=== PATIENT | female | born 1945 | race Caucasian/White ===

== ENCOUNTER 2019-10-31 14:23 | Outpatient (CLI) | payer MEDICARE, SELFPAY ==
--- NOTE | ~2019-10-31 | MM_ITS ---
EXAMINATION: MM screening [facility] w [facility] HISTORY: Screening mammogram TECHNIQUE: Craniocaudal and mediolateral oblique 3-D tomosynthesis images were obtained and synthetic 2-D images were generated. CAD analysis was submitted and interpreted. COMPARISON: No prior mammogram is available for comparison at this institution. BREAST PARENCHYMAL COMPOSITION: The breasts are heterogeneously dense, which may obscure small masses . FINDINGS: RIGHT BREAST: There is no evidence of suspicious mass, calcification, or architectural distortion to suggest malignancy. There has been no significant interval change. LEFT BREAST: A mass is present in the middle third of the lower breast best appreciated 5 cm from the nipple on the craniocaudal view in line with the nipple axis. IMPRESSION: 1. Left breast mass. 2. Additional mammographic views and possible breast ultrasound are recommended. BI-RADS Category 0: Incomplete: Needs additional imaging evaluation. Reviewed, dictated and finalized at location A. GER [employer]GY [employer] ACCOUNT IMPRESSION: 1. Left breast mass. 2. Additional mammographic views and possible breast ultrasound are recommended . BI-RADS Category 0: Incomplete: Needs additional imaging evaluation.
== END 2019-10-31 14:24 | disposition home or self-care (01) ==
LOC: ANHIMG 14:25
PROVIDERS: PCP Internal Medicine; Visit Provider Obstetrics & Gynecology Gynecology
DX: Z12.31 Encounter for screening mammogram for malignant neoplasm of breast (principal); R92.8 Other abnormal and inconclusive findings on diagnostic imaging of breast
CPT/HCPCS: 77063; 77067

== ENCOUNTER 2019-11-22 13:15 | Outpatient (CLI) | payer MEDICARE, SELFPAY ==
--- NOTE | ~2019-11-22 | MMUS_ITS ---
EXAMINATION: MM diagnostic mammo unilat LT, US breast LT complete HISTORY: Follow-up left breast mass TECHNIQUE: Additional 3-D tomosynthesis images of the left breast were performed and synthetic 2-D im ages were generated. CAD analysis was submitted and interpreted. High resolution left breast ultrasou nd was performed. COMPARISON: Comparison to multiple prior studies sequentially, with oldest reviewed study dated 10/14. FINDINGS: MAMMOGRAPHIC FINDINGS: The breasts are heterogenously dense, which may obscure small masses. There is a low-density mass in the lower central aspect of the left breast. There are benign breast calcifications. ULTRASOUND: At 3:00, 1 cm from the nipple, there is a 1.2 cm cyst. There are additional smaller cyst measuring 7 mm or smaller at the 4:00 position, 1 cm from the nipple. Mildly prominent subareolar ducts. No suspi cious masses to suggest malignancy. IMPRESSION: 1. No evidence for malignancy in the left breast. Multiple benign cysts correspond to the mammographi c finding. 2. Routine yearly screening mammogram and regular clinical breast examination are recommended. BI-RADS Category 2: Benign finding(s). Reviewed, dictated and finalized at location A. MANAGEMENT COORDINATOR IMPRESSION: 1. No evidence for malignancy in the left breast. Multiple benign cysts corresp ond to the mammographic finding. 2. Routine yearly screening mammogram and regular clinical breast examination a re recommended. BI-RADS Category 2: Benign finding(s).
== END 2019-11-22 13:16 | disposition home or self-care (01) ==
LOC: ANHIMG 13:17
PROVIDERS: PCP Internal Medicine; Visit Provider Obstetrics & Gynecology Gynecology
DX: R92.8 Other abnormal and inconclusive findings on diagnostic imaging of breast (principal)
CPT/HCPCS: 76641; 77065

== ENCOUNTER 2020-12-03 10:08 | Outpatient (CLI) | payer MEDICARE, SELFPAY ==
--- NOTE | ~2020-12-03 | MM_ITS ---
EXAMINATION: MM screening [facility] w [facility]hu HISTORY: Screening mammogram TECHNIQUE: Craniocaudal and mediolateral oblique 3-D tomosynthesis images were obtained and synthetic 2-D images were generated. CAD analysis was submitted and interpreted. COMPARISON: 11/22/2019 left diagnostic mammogram and complete left breast ultrasound examination 10/31/2019, 10/30/2018, 10/23/2017 bilateral digital screening mammogram examinations BREAST PARENCHYMAL COMPOSITION: The breasts are heterogeneously dense, which may obscure small masses . FINDINGS: There is a biopsy marker in the upper outer left breast; history of benign left breast biop sy 8 years ago. Numerous benign calcifications are scattered in each breast. There is no evidence of suspicious mass, calcification, or architectural distortion to suggest malignancy in either breast. There has been no suspicious interval change. IMPRESSION: 1. No mammographic evidence of malignancy. 2. Recommend routine screening mammography in one year. BI-RADS Category 2: Benign finding(s). Reviewed, dictated and finalized at location A. [employer]
== END 2020-12-03 10:09 | disposition home or self-care (01) ==
LOC: ANHIMG 10:11
PROVIDERS: PCP Internal Medicine; Visit Provider Obstetrics & Gynecology Gynecology
DX: Z12.31 Encounter for screening mammogram for malignant neoplasm of breast (principal)
CPT/HCPCS: 77063; 77067

== ENCOUNTER 2021-12-23 15:40 | Outpatient (CLI) | payer MEDICARE, SELFPAY ==
--- NOTE | ~2021-12-23 | MM_ITS ---
EXAMINATION: MM screening [facility] BI w prabhu HISTORY: Screening mammogram TECHNIQUE: Craniocaudal and mediolateral oblique 3-D tomosynthesis images were obtained and synthetic 2-D images were generated. CAD analysis was submitted and interpreted. COMPARISON: 12/03/2020, 11/22/2019, 10/31/2019 BREAST PARENCHYMAL COMPOSITION: The breasts are heterogeneously dense, which may obscure small masses . FINDINGS: Scattered benign-appearing calcifications are present. There is no suspicious mass, calcifi cation, or architectural distortion to suggest malignancy in either breast. There has been no suspici ous interval change. IMPRESSION: 1. No mammographic evidence of malignancy. 2. Recommend routine screening mammography in one year. BI-RADS Category 2: Benign finding(s). Reviewed, dictated and finalized at location A.
== END 2021-12-23 15:41 | disposition home or self-care (01) ==
PROVIDERS: PCP Internal Medicine; Visit Provider Obstetrics & Gynecology Gynecology
DX: Z12.31 Encounter for screening mammogram for malignant neoplasm of breast (principal)
CPT/HCPCS: 77063; 77067

== ENCOUNTER 2023-01-13 12:28 | Outpatient (CLI) | payer MEDICARE, SELFPAY ==
--- NOTE | ~2023-01-13 | MM_ITS ---
EXAMINATION: MM diagnostic [facility] w prabhu HISTORY: Mastodynia TECHNIQUE: Craniocaudal, mediolateral, and mediolateral oblique 3-D tomosynthesis images of the breas ts were performed and synthetic 2-D images were generated. CAD analysis was submitted and interpreted . COMPARISON: 12/23/2021, 12/03/2020, 11/22/2019, 10/31/2019 BREAST PARENCHYMAL COMPOSITION: The breasts are heterogeneously dense, which may obscure small masses . FINDINGS: No suspicious mass, calcification, or architectural distortion are identified in either ed[place] ast to suggest malignancy. There has been no suspicious interval change. Scattered benign-appearing c alcifications are present. No mammographic correlate is identified for the patient's reported breast pain. IMPRESSION: 1. No specific mammographic correlate is identified for the patient's reported breast pain. Further e valuation at this time should be based on clinical assessment. Continued follow-up physical examinati on is recommended. 2. Recommend routine screening mammography in one year. BI-RADS Category 2: Benign finding(s). Reviewed, dictated and finalized at location A. IMPRESSION: 1. No specific mammographic correlate is identified for the patient's reported breast pain. Further evaluation at this time should be based on clinical assess ment. Continued follow-up physical examination is recommended. 2. Recommend routine screening mammography in one year. BI-RADS Category 2: Benign finding(s).
== END 2023-01-13 12:29 | disposition home or self-care (01) ==
PROVIDERS: PCP Internal Medicine; Visit Provider Nurse Practitioner
DX: N64.4 Mastodynia (principal)
CPT/HCPCS: 77062; 77066; G0279

== ENCOUNTER 2024-02-08 15:25 | Outpatient (CLI) | payer MEDICARE, SELFPAY ==
--- NOTE | ~2024-02-08 | MM_ITS ---
EXAMINATION: MM screening [facility] w prabhu HISTORY: Screening mammogram TECHNIQUE: Craniocaudal and mediolateral oblique 3-D tomosynthesis images were obtained and synthetic 2-D images were generated. CAD analysis was submitted and interpreted. COMPARISON: January 13, 2023 bilateral diagnostic mammogram for mastodynia December 23, 2021 bilateral screening mammogram BREAST PARENCHYMAL COMPOSITION: The breasts are extremely dense, which lowers the sensitivity of mamm ography. FINDINGS: Numerous calcifications are scattered throughout both breasts. There is no evidence of brianne picious mass, calcification, or architectural distortion to suggest malignancy in either breast. Ther e has been no suspicious interval change. IMPRESSION: 1. No mammographic evidence of malignancy. 2. Recommend routine screening mammography in one year. BI-RADS Category 2: Benign finding(s). Reviewed, dictated and finalized at location B.
== END 2024-02-08 15:26 | disposition home or self-care (01) ==
LOC: ANHIMG 15:27
PROVIDERS: PCP Internal Medicine; Visit Provider Internal Medicine
DX: Z12.31 Encounter for screening mammogram for malignant neoplasm of breast (principal)
CPT/HCPCS: 77063; 77067

== ENCOUNTER 2024-05-06 09:41 | Outpatient (CLI) | payer MEDICARE, SELFPAY | END 2024-05-06 09:42 | disposition home or self-care (01) | PROVIDERS: PCP Internal Medicine; Visit Provider Internal Medicine | DX: H90.3 Sensorineural hearing loss, bilateral (principal); H93.11 Tinnitus, right ear; H61.23 Impacted cerumen, bilateral | CPT/HCPCS: 92557; 92567 ==

== ENCOUNTER 2025-02-12 12:34 | Outpatient (CLI) | payer MEDICARE, SELFPAY ==
--- NOTE | ~2025-02-12 | CT_ITS ---
CT Scan of the Chest without Contrast: Clinical Indication: Pulmonary nodule Technique: Contiguous sections were acquired throughout the chest without intravenous contrast. Dose reduction technique was used on this scan by utilizing automated exposure control and iterative recon struction technique. The dose-length product (DLP) was 37.72 mGy-cm. Findings: There is no evidence of any significant mediastinal, hilar or axillary lymphadenopathy. Atherosclerot ic calcifications of the aorta and coronary arteries are present. There is no evidence of pleural or pericardial effusion. The lungs are clear. No pulmonary nodules or infiltrates are noted. Images through the upper abdomen reveal no abnormalities. Impression: No significant abnormalities seen. Reviewed, dictated and finalized at location . Impression: No significant abnormalities seen.
== END 2025-02-12 12:35 | disposition home or self-care (01) ==
LOC: MICIMG 12:36
PROVIDERS: PCP Internal Medicine; Visit Provider Internal Medicine
DX: R91.1 Solitary pulmonary nodule (principal)
CPT/HCPCS: 71250

== ENCOUNTER 2025-04-10 09:43 | Outpatient (CLI) | payer MEDICARE, SELFPAY ==
--- NOTE | ~2025-04-10 | MM_ITS ---
EXAMINATION: MM screening lenora BI w prabhu HISTORY: Screening TECHNIQUE: Craniocaudal and mediolateral oblique 3-D tomosynthesis images were obtained and synthetic 2-D images were generated. CAD analysis was submitted and interpreted. COMPARISON: Comparison to multiple prior studies sequentially, with oldest reviewed study dated 02/2020. BREAST PARENCHYMAL COMPOSITION: Dense: The breasts are extremely dense, which lowers the sensitivity of mammography. FINDINGS: There is no evidence of suspicious mass, calcification, or architectural distortion to sugg est malignancy in either breast. There has been no suspicious interval change. IMPRESSION: 1. No mammographic evidence of malignancy. 2. Recommend routine screening mammography in one year. BI-RADS Category 2: Benign finding(s). Reviewed, dictated and finalized at location B.
--- OUTSIDE RECORDS SUMMARY | 2025-04-10 09:46 | XMS_ITS | Clinical Summary ---
Author Organization [facility] Address [address] [place] [address] Care Team Providers Care Security Systems Installer Name Role Phone Sergio Leonard MD Primary Care Provider [phone] Source Comments [facility],non-owned Affiliates and Associated Physician Practices is amultiple site organization consisting of ambulatory clinics and hospital sitesin [place], [place], [place] and [place]. This disclosure is being madepursuant to the Care Everywhere program and may not contain all information available regarding this patient. Last updated 18.[facility] Allergies No known active allergies Medications * Be aware that medications may not be up to date on this document. Alwaysverify current medications with the patient. Aspirin (ASPIR-81 PO) Active atorvastatin (LIPITOR) 10 MG tablet Take 10 mg by mouth at bedtime Active amLODIPine (NORVASC) 5 MG tablet Take 5 mg by mouth once daily Active METOPROLOL SUCCINATE PO Active Active Problems No known active problems Social History Tobacco Use Types Packs/Day Years Used Date Smoking Tobacco: Every Day Smokeless Tobacco: Never Tobacco Cessation:Ready to Q uit: No; Counseling Given: Yes Comments No Sex and Gender Information Value Date Recorded Sex Assigned at Not on file Legal Sex Female 9:27 AM CDT Gender Identity Not on file Sexual Orientation Not on file Last Filed Vital Signs Vital Sign Reading Time Taken Comments Blood Pressure 122/80 06/05/2018 9:45 AM CDT Pulse 80 06/05/2018 9:45 AM CDT Temperature 36.6 C (97.8 F) 06/05/2018 9:45 AM CDT Respiratory Rate 16 06/05/2018 9:45 AM CDT Oxygen Saturation 94% 06/05/2018 9:45 AM CDT Inhaled Oxygen Concentration - - Weight 78 kg (172 lb) 06/05/2018 9:45 AM CDT Height 160 cm (5' 3) 06/05/2018 9:45 AM CDT Body Mass Index 30.47 06/05/2018 9:45 AM CDT Plan of Treatment Health Maintenance Due Date Last Done Comments BONE DENSITY TESTING 1945 HEPATITIS C SCREENING 10/04/1964 DTAP/TDAP/TD VACCINES (1 - Tdap) 1965 PNEUMOCOCCAL VACCINE 50+ (1 of 1 - PCV) 1996 ZOSTER VACCINE (1 of 2) 1996 Respiratory Syncytial Virus (RSV) Vaccine Pt: or over 60 yrs (1 - 1-dose 75+ series) 2021 COVID-19 VACCINE ( - 2023-2 5 season) 2024 DEPRESSION SCREENING 09/25/2024 INFLUENZA VACCINE (#1) 2025 HEPATITIS B VACCINE Aged Out No longe r eligible based on patient's age to complete this topic HIB VACCINE Aged Out No longer eligi ble based on patient's age to complete this topic HPV VACCINE Aged Out No longer eligi ble based on patient's age to complete this topic MENINGOCOCCAL (Group B) VACC INE SHARED DECISION-MAKING Aged Out No longer eligibl e based on patient's age to complete this topic MENINGOCOCCAL GROUPS A/C/Y/W VACCINE Aged Out No longer eligible b ased on patient's age to complete this topic Insurance Care Teams Security Systems Installer Relationship Specialty Start Date End Date Sergio Leonard MD [address] [place] [address] PCP - General Family Medicine 06/03/16
--- OUTSIDE RECORDS SUMMARY | 2025-04-10 09:47 | XMS_ITS | Data Portability ---
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 Plan of Treatment Reminders Order Date Submit Date Provider Last Modified By Organization Details Last Modified Time Details Appointments Any 15 2024 03:00P M Juliette Ortega MD Not available Not available Not available Lab None recorded. Referral None recorded. Procedures None recorded. Surgeries None recorded. Imaging CT, chest, w/o contrast - Please call patient to schedule. 2024 025 [facility], [address] [address], [place], [address], 02/20/2025 10:45:53 LDCT, chest, for lung cancer screening 2023 024 [facility] ([facility]), [address], [place], [address], 11/07/2023 16:18:46 Medication Orders amoxicill in 500 mg capsule 2024 025 [email or web address] [facility]/Pharmacy #[id number], [address], [place], [address], 02/19/2025 08:30:36 Flonase Allergy Relief 50 mcg/actua tion nasal spray,brianne pension 2024 025 [facility]/Pharmacy #[id number], [address] [place], [address], 02/10/2025 14:23:22 Patient TargetsNo targets recorded. Patient Instructions Encounter Date Encounter Id Patient Instructions Last Modified By Organization Details Last Modified Time 02/10/2025 [id number] Discussed the importance of antibiotic therapy compliance. Patient needs to take medication as prescribed, including completing entire course even if symptoms improve/resolve. Discussed possible side effects of medication. Instructed patient to take medication with food to prevent stomach upset and increase daily water intake. Patient will follow up in 3-4 days if symptoms are not improving or worsen while taking antibiotics. [email or web address] Not available 02/10/2025 14:24:16 Discussed viral infections vs. bacterial infections. Advised to stay hydrated. Take OTC tylenol for pain/fevers. Discussed fevers and basic treatments. Advised to stop smoking. [email or web address] Not available 02/10/2025 14:25:47 Reason for Referral None Reported. Results Created Date Observation Date Name Description Value Unit Range Abnormal Flag Note LastModifiedBy Organization Detail LastModifiedTime 10/26/19 24 10/26/2023 CBC/C OMPLE TE BLD COUNT W/DIF F white blood cells 7.6 x10'3 /uL 4.2-10 .8 Not Available [facility] (Lab) [address] [place], [address], 10/26/2023 20:13:11 10/26/19 24 10/26/2023 CBC/C OMPLE TE BLD COUNT W/DIF F red blood cells 4.63 x10'6 /uL 3.80-5 .20 Not Available [facility] (Lab) [address] [place], [address], 10/26/2023 20:13:11 10/26/19 24 10/26/2023 CBC/C OMPLE TE BLD COUNT W/DIF F hemoglobin 14.5 g/dL 12.0-1 5.6 Not Available [facility] (Lab) [address] [place], [address], 10/26/2023 20:13:11 10/26/19 10/26/2023 CBC/C OMPLE TE BLD COUNT W/DIF F hematocrit 44.9 % 35.7-4 5.7 Not Available [facility] (Lab) [address] [place], [address], 10/26/2023 20:13:11 10/26/19 24 10/26/2023 CBC/C OMPLE TE BLD COUNT W/DIF F mean red cell volume 97.0 fL 82.0-9 9.0 Not Available [facility] (Lab) [address] [place], [address], 10/26/2023 20:13:11 10/26/19 24 10/26/2023 CBC/C OMPLE TE BLD COUNT W/DIF F mean red cell hemoglobin 31.3 pg 27.0-3 3.0 Not Available [facility] (Lab) [address] [place], [address], 10/26/2023 20:13:11 10/26/19 24 10/26/2023 CBC/C OMPLE TE BLD COUNT W/DIF F mean RBC HGB concentratio n 32.3 g/dL 31.0-3 6.0 Not Available [facility] (Lab) [address] [place], [address], 10/26/2023 20:13:11 10/26/19 24 10/26/2023 CBC/C OMPLE TE BLD COUNT W/DIF F red cell distribution width 14.0 % 11.8-1 5.5 Not Available [facility] (Lab) [address] [place], [address], 10/26/2023 20:13:11 10/26/19 24 10/26/2023 CBC/C OMPLE TE BLD COUNT W/DIF F platelets 231 x10'3 /uL 150-40 0 Not Available [facility] (Lab) [address] [place], [address], 10/26/2023 20:13:11 10/26/19 24 10/26/2023 CBC/C OMPLE TE BLD COUNT W/DIF F mean platelet volume 9.8 fL 9.0-12 .4 Not Available [facility] (Lab) [address] [place], [address], 10/26/2023 20:13:11 10/26/19 24 10/26/2023 CBC/C OMPLE TE BLD COUNT W/DIF F neutrophils 49.4 % 39.0-7 2.0 Not Available [facility] (Lab) [address] [place], [address], 10/26/2023 20:13:11 10/26/19 24 10/26/2023 CBC/C OMPLE TE BLD COUNT W/DIF F lymphocytes 37.0 % 16.0-4 7.0 Not Available [facility] (Lab) [address] [place], [address], 10/26/2023 20:13:11 10/26/19 24 10/26/2023 CBC/C OMPLE TE BLD COUNT W/DIF F monocytes 7.9 % 5.0-12 .0 Not Available [facility] (Lab) [address] [place], [address], 10/26/2023 20:13:11 10/26/19 24 10/26/2023 CBC/C OMPLE TE BLD COUNT W/DIF F eosinophils 4.9 % 1.0-7. 0 Not Available [facility] (Lab) [address] [place], [address], 10/26/2023 20:13:11 10/26/19 24 10/26/2023 CBC/C OMPLE TE BLD COUNT W/DIF F basophils 0.5 % 0.0-2. 0 Not Available [facility] (Lab) [address] [place], [address], 10/26/2023 20:13:11 10/26/19 24 10/26/2023 CBC/C OMPLE TE BLD COUNT W/DIF F immature granulocytes 0.3 % 0.00-0 .50 Not Available [facility] (Lab) [address] [place], [address], 10/26/2023 20:13:11 10/26/19 24 10/26/2023 CBC/C OMPLE TE BLD COUNT W/DIF F neutrophils, absolute count 3.75 x10'3 /uL 1.5-8. 0 Not Available [facility] (Lab) [address] [place], [address], 10/26/2023 20:13:11 10/26/19 24 10/26/2023 CBC/C OMPLE TE BLD COUNT W/DIF F lymphocytes, absolute count 2.81 x10'3 /uL 1.07-3 .43 Not Available [facility] (Lab) [address] [place], [address], 10/26/2023 20:13:11 10/26/19 24 10/26/2023 CBC/C OMPLE TE BLD COUNT W/DIF F monocytes, absolute count 0.60 x10'3 /uL 0.29-0 .99 Not Available [facility] (Lab) [address] [place], [address], 10/26/2023 20:13:11 10/26/19 24 10/26/2023 CBC/C OMPLE TE BLD COUNT W/DIF F eosinophils, absolute count 0.37 x10'3 /uL 0.02-0 .53 Not Available [facility] (Lab) [address] [place], [address], 10/26/2023 20:13:11 10/26/19 24 10/26/2023 CBC/C OMPLE TE BLD COUNT W/DIF F basophils, absolute count 0.04 x10'3 /uL 0.01-0 .08 Not Available [facility] (Lab) [address] [place], [address], 10/26/2023 20:13:11 10/26/19 24 10/26/2023 CBC/C OMPLE TE BLD COUNT W/DIF F immature granulocytes ,absolute 0.02 x10'3 /uL 0.00-0 .05 Not Available [facility] (Lab) [address] [place], [address], 10/26/2023 20:13:11 10/26/19 24 10/26/2023 CBC/C OMPLE TE BLD COUNT W/DIF F nucleated red blood cells 0.0 % -0 Not Available [facility] (Lab) [address] [place], [address], 10/26/2023 20:13:11 10/26/19 24 10/26/2023 CBC/C OMPLE TE BLD COUNT W/DIF F NRBC# 0.00 x10'3 /uL Not Available [facility] (Lab) [address] [place], [address], 10/26/2023 20:13:11 10/26/19 24 10/26/2023 COMPR EHENS DEA METAB OLIC PANEL sodium 142 mmol/ L 137-14 5 Not Available [facility] (Lab) [address] [place], [address], 10/26/2023 21:39:44 10/26/19 24 10/26/2023 COMPR EHENS DEA METAB OLIC PANEL potassium 4.0 mmol/ L 3.5-5. 1 Not Available [facility] (Lab) [address] [place], [address], 10/26/2023 21:39:44 10/26/19 24 10/26/2023 COMPR EHENS DEA METAB OLIC PANEL chloride 103 mmol/ L 98-107 Not Available [facility] (Lab) [address] [place], [address], 10/26/2023 21:39:44 10/26/19 24 10/26/2023 COMPR EHENS DEA METAB OLIC PANEL carbon dioxide 30 mmol/ L 22-30 Not Available [facility] (Lab) [address] [place], [address], 10/26/2023 21:39:44 10/26/19 24 10/26/2023 COMPR EHENS DEA METAB OLIC PANEL anion gap 13.0 mmol/ L 14-22 low Not Available [facility] (Lab) [address] [place], [address], 10/26/2023 21:39:44 10/26/19 24 10/26/2023 COMPR EHENS DEA METAB OLIC PANEL glucose 84 mg/dL 70-99 Not Available [facility] (Lab) [address] [place], [address], 10/26/2023 21:39:44 10/26/19 24 10/26/2023 COMPR EHENS DEA METAB OLIC PANEL BUN 28 mg/dL 8-19 high Not Available [facility] (Lab) [address] [place], [address], 10/26/2023 21:39:44 10/26/19 24 10/26/2023 COMPR EHENS DEA METAB OLIC PANEL creatinine 0.73 mg/dL 0.66-1 .25 Not Available [facility] (Lab) [address] [place], [address], 10/26/2023 21:39:44 10/26/19 24 10/26/2023 COMPR EHENS DEA METAB OLIC PANEL GFR >60 Refer ence Range : [place] GFR Healt hy Adult : >60 mL/mi n/1.7 3 m2 Chron ic Kidne y Disea se: 15-60 mL/mi n/1.7 3 m2 Kidne y Failu re: <15/m L/min /1.73 m2 www.n iddk. nih.g ov The MDRD study equat ion has not been valid ated in child zuleyka <18 years of age; pregn ant women ; the elder ly >85 years of age; or in some racia l or ethni c subgr oups, such as Hispa nics. Outsi de the valid ated raymundo eters , estim ated GFR is less accur ate, requi ring clini rosalie judgm ent on a case- by-ca se basis . Clini rosalie inter preta tion for other races and ages must be made by the clini zaan. The MDRD study equat ion has not been valid ated for the evalu ation of serum creat inine relat ed to nutri margo l statu s or medic ation usage . For perso ns <18 years of age, a pedia tric GFR calcu lator is avail able on the [facility] websi te: https :[email or web address] phelan.lisbet gallegos.o rg/pr ofess ional s/kdo qi/gf r_cal culat or Not Available [facility] (Lab) [address] [place], [address], 10/26/2023 21:39:44 10/26/19 24 10/26/2023 COMPR EHENS DEA METAB OLIC PANEL alkaline phosphatase 58 U/L 38-126 Not Available [facility] (Lab) [address] [place], [address], 10/26/2023 21:39:44 10/26/19 24 10/26/2023 COMPR EHENS DEA METAB OLIC PANEL alanine aminotransfe rase 13 U/L 0-35 Not Available [facility] (Lab) [address] [place], [address], 10/26/2023 21:39:44 10/26/19 24 10/26/2023 COMPR EHENS DEA METAB OLIC PANEL aspartate aminotransfe rase 26 U/L 15-37 Not Available [facility] (Lab) [address] [place], [address], 10/26/2023 21:39:44 10/26/19 24 10/26/2023 COMPR EHENS DEA METAB OLIC PANEL bilirubin, total 0.50 mg/dL 0.20-1 .30 Not Available [facility] (Lab) [address] [place], [address], 10/26/2023 21:39:44 10/26/19 24 10/26/2023 COMPR EHENS DEA METAB OLIC PANEL calcium 10.2 mg/dL 8.4-10 .2 Not Available [facility] (Lab) [address] [place], [address], 10/26/2023 21:39:44 10/26/19 24 10/26/2023 COMPR EHENS DEA METAB OLIC PANEL total protein 7.4 g/dL 6.3-8. 2 Not Available [facility] (Lab) [address] [place], [address], 10/26/2023 21:39:44 10/26/19 24 10/26/2023 COMPR EHENS DEA METAB OLIC PANEL albumin 4.4 g/dL 3.0-4. 4 Not Available [facility] (Lab) [address] [place], [address], 10/26/2023 21:39:44 10/26/19 24 10/26/2023 COMPR EHENS DEA METAB OLIC PANEL globulin 3.0 g/dL 2.6-4. 2 Not Available [facility] (Lab) [address] [place], [address], 10/26/2023 21:39:44 10/26/19 24 10/26/2023 COMPR EHENS DEA METAB OLIC PANEL A/G ratio 1.5 ratio 1.0-2. 0 Not Available [facility] (Lab) [address] [place], [address], 10/26/2023 21:39:44 10/26/19 24 10/26/2023 LIPID PANEL cholesterol 178 mg/dL 140-19 9 [facility] SIMIN NSUS RECOM MENDA TION FOR GEOFF STERO L: ADULT CHILD LOW RISK: <200 <170 BORDE RLINE : <200- 239 ----- HIGH RISK: >240 >200 Not Available [facility] (Lab) [address] [place], [address], 10/26/2023 21:39:48 10/26/19 24 10/26/2023 LIPID PANEL triglyceride s 91 mg/dL 0-150 NIH SIMIN NSUS REPOR T RECOM MENDA TION FOR TRIGL YCERI LIDIA: ADULT CHILD LOW RISK: <150 ----- BODER LINE: 150-1 99 ----- HIGH RISK: >200 ----- Not Available [facility] (Lab) [address] [place], [address], 10/26/2023 21:39:48 10/26/1910/26/2023 LIPID PANEL HDL cholesterol 73 mg/dL 40- Not Available [facility] (Lab) [address] [place], [address], 10/26/2023 21:39:48 10/26/19 24 10/26/2023 LIPID PANEL LDL cholesterol, calculated 87 mg/dL 0-130 NIH SIMIN NSUS REPOR T RECOM MENDA TIONS FOR LDL: ADULT CHILD LOW RISK <130 <110 (OPTI MAL LDL) <100 ----- BORDE RLINE : 130-1 59 ----- HIGH RISK: >160 >130 A TRIGL YCERI DE RESUL T >400 INVAL IDATE S THE CALCU LATIO N FOR LDL FRACT IONAT ION - THE LDL RESUL T WILL NOT BE REPOR TEN. Not Available [facility] (Lab) [address] [place], [address], 10/26/2023 21:39:48 10/26/19 24 10/26/2023 VITAM IN D 25-HY DROXY [id number] 77.7 NG/mL 30-100 Vitam in D Statu s: Defic ient: <20 ng/mL Insuf ficie nt: 20-29 ng/mL Suffi cient : 30-10 0 ng/mL Not Available [facility] (Lab) [address], [place], [address], 10/26/2023 22:23:24 11/07/19 24 11/07/2023 LDCT, chest , for lung cance r scree chele [facility] [address] [facility] [address], [place] [address] Patien t Name: VIELKA DACOSTA Access ion #: [id number] Sex: F : 1945 7 Dictat ed By: Kamran Chopra ms Attend ing Physic kade: BECKA ORTEGA Orderi ng Physic kade: BECKA ORTEGA Exam Date: 2023 14:00 PM Exam Name: CT LOW DOSE CNCR SCREEN ING Admitt ing Diagno sis(es ): CT Chest withou t intrav enous contra st INDICA TION: Lung cancer screen ing. Histor y of nicoti ne 1 pack per day over 40 years. TECHNI QUE: Multid etecto r spiral CT of the chest was perfor med from the lung apices to the upper abdome n. Axial, maldonado l and sagitt al multip lanar reform ats were perfor med. Radiat ion Dose : 1. Chest: CTDI volume is 1.1 mGy. Dose-l ength produc t is 44.5 mGy*cm The dose indica tors for CT are the volume Comput ed Tomogr aphy (CT) Dose Index (CTDIv ol) and the Dose Length Produc t (DLP), and are measur ed in units of mGy and mGy-cm , respec tively . These indica tors are not patien t dose, but values genera ten from the CT scanne r acquis ition factor s. The report includ es radiat ion exposu re data for exposu res receiv ed during this examin ation. Compar anatoly: 022 Findin gs: Lower neck: Unrema rkable thyroi d Lungs: There is a 3 mm nodule in the lingul a, stable . No eviden ce of new pulmon ilsy nodule s. The lungs are hyperi nflate d. Heart/ Vascul ar Struct ures: The heart is normal in size. No perica rdial effusi on There are maldonado ry artery calcif icatio ns. Normal calibe r aorta. The main pulmon lisy artery is normal in calibe r Lymph Nodes: No adenop athy Page 1 [facility] [address] [facility] [place] [address] Patien t Name: VIELKA DACOSTA Access ion #: [id number] Sex: F : 1945 7 Dictat ed By: Kamran Chopra ms Attend ing Physic kade: BIPIN SALGADO Physic kade: BECKA ORTEGA Exam Date: 2023 14:00 PM Exam Name: CT LOW DOSE CNCR SCREEN ING Admitt ing Diagno sis(es ): Pleura : No pleura l effusi ons. No pneumo thorax Muscul oskele stacey: No fractu re or suspic ious bone lesion s. Body wall: Unrema rkable Upper abdome n: Unrema rkable IMPRES JASMIN: 1. Stable 3 mm nodule in the lingul a. 2. Hyperi nflate d lungs. 3. Maldonado ry artery calcif icatio ns. Lung-R ADS: Catego ry 2: Recomm endati on: Contin ue annual screen ing with LDCT [email or web address]: [email or web address] s/RADS /[email or web address]- RADS/L hillary-RA - [email or web address].pdf Electr onical ly Signed by: Kamran Chopra ms at 2023 15:17: 26 PM Page 2 [email or web address] [facility] (Imaging) [address] [place], [address], 11/15/2023 16:10:32 02/09/20 24 02/07/2024 MAMMO , scree chele, digit al, bilat eral No observ ation record ed. [email or web address] Not Available 2023 16:02:47 02/21/20 25 02/19/2025 CT, chest , w/o contr ast No observ ation record ed. [email or web address] [facility] [address], [place], [address], 02/20/2025 14:49:27 Result Notes Documentation Provider Name and Address Organization Details Recorded Time Ldct, Chest, For Lung Cancer Screening : [facility] [address] [place] [address] Patient Name: VIELKA BUCHANAN Sex: F : 1945 Dictated By: Dulce Kirk Attending Physician: JULIETTE ORTEGA Ordering Physician: JULIETTE ORTEGA Exam Date: 11/07/2023 14:00 PM Exam Name: CT LOW DOSE CNCR SCREENING Admitting Diagnosis(es): CT Chest without intravenous contrast INDICATION: Lung cancer screening. History of nicotine 1 pack per day over 40 years. TECHNIQUE: Multidetector spiral CT of the chest was performed from the lung apices to the upper abdomen. Axial, coronal and sagittal multiplanar reformats were performed. Radiation Dose : 1. Chest: CTDI volume is 1.1 mGy. Dose-length product is 44.5 mGy*cm The dose indicators for CT are the volume Computed Tomography (CT) Dose Index (CTDIvol) and the Dose Length Product (DLP), and are measured in units of mGy and mGy-cm, respectively. These indicators are not patient dose, but values generated from the CT scanner acquisition factors. The report includes radiation exposure data for exposures received during this examination. Comparison: 07/26/2022 Findings: Lower neck: Unremarkable thyroid Lungs: There is a 3 mm nodule in the lingula, stable. No evidence of new pulmonary nodules. The lungs are hyperinflated. Heart/Vascular Structures: The heart is normal in size. No pericardial effusion There are coronary artery calcifications. Normal caliber aorta. The main pulmonary artery is normal in caliber Lymph Nodes: No adenopathy Page 1 [facility] [address] [place] [address] Patient Name: VIELKA BUCHANAN Sex: F : 1945 Dictated By: Dulce Kirk Attending Physician: BIPIN SEGOVIA Ordering Physician: JULIETTE ORTEGA Exam Date: 11/07/2023 14:00 PM Exam Name: CT LOW DOSE CNCR SCREENING Admitting Diagnosis(es): Pleura: No pleural effusions. No pneumothorax Musculoskeletal: No fracture or suspicious bone lesions. Body wall: Unremarkable Upper abdomen: Unremarkable IMPRESSION: 1. Stable 3 mm nodule in the lingula. 2. Hyperinflated lungs. 3. Coronary artery calcifications. Lung-RADS: Category 2: Recommendation: Continue annual screening with LDCT [email or web address] Page 2 Juliette Ortega MD [address] [place] [address], [facility] [address], [place], [address], [place] [facility] 11/15/2023 16:10:32 Problems Name Problem SNOMED Code Status Onset Date Resolution Date Notes Provider Name and Address Organization Details Recorded Time Injury of lower limb 420407337 Completed Not Available [facility] 3 04:50:40 Osteoarth ritis of hip 367918749 Completed Not Available [facility] 3 04:50:40 Fibromyos itis 96027015 Completed Not Available [facility] 3 04:50:40 Current tear of lateral cartilage AND/OR meniscus of knee Completed Not Available [facility] 3 04:50:41 Knee pain Completed Not Available [facility] 3 04:50:41 Osteoarth ritis 918684294 Active Not Available [facility] 3 04:50:41 Hyperlipi demia 81643551 Active Not Available [facility] 3 04:50:42 Essential hypertens ion 27207458 Active Not Available [facility] 3 04:50:42 Painless rectal bleeding 039218720 Completed 201603/23/2022 Not Available [facility] 3 04:50:41 Smoker 51909380 Active 2016 Not Available [facility] 3 04:50:42 Obesity 724282043 Active 2018 Not Available [facility] 3 04:50:41 Hyperglyc emia 53556462 Active 2018 Not Available [facility] 3 04:50:42 Prediabet es 416191467 Active 2018 Not Available [facility] 3 04:50:42 Impacted cerumen of bilateral ears 08117704158 32406 Completed 202103/23/2022 Not Available [facility] 3 04:50:40 Impacted cerumen in right ear 75053155379 87981 Completed 202103/23/2022 Not Available [facility] 3 04:50:40 Long-term drug therapy Completed 202103/23/2022 Not Available [facility] 3 04:50:41 Adult health examinati on Active 2021 Not Available [facility] 3 04:50:41 Osteopeni a 011258622 Active 2021 Not Available [facility] 3 04:50:41 Solitary nodule of lung 907274415 Active 2021 Not Available [facility] 3 04:50:41 Acute sinusitis 22984916 Active 2021 SHIRLEY Henderson [address], [address] , [email or web address] [facility] [employer] 5 14:17:56 Cough 23992796 Completed 202107/26/2022 Cherri Pak MA null, [email or web address] [facility] [employer] 4 10:32:41 Neck pain 13589196 Active 2022 KASHIF Avelar null, [email or web address] [facility] [employer] 3 15:42:38 Urinary symptoms 772966395 Active 2022 Yuri Tao CMA null, [place] [facility] 3 15:50:08 Urinary symptoms 306988804 Active 2022 Sadia England NP [address], [place], [address] , [place] [facility] 3 15:59:55 Abdominal bloating 274761972 Active 2022 Sadia England NP [address], [place], [address] , [place] [facility] 3 16:00:00 Pain of left knee joint 53691300108 4107 Active 2022 Radha Anderson RMRosanna null, [place] [facility] 3 09:20:50 Pain of left hip joint 42225361623 9100 Active 2022 Radha Anderson RMRosanna null, [place] [facility] 3 09:38:39 Vitamin D deficienc y 16949028 Active 2023 Maria T white RMA null, [place] [facility] 4 16:52:11 Hearing loss 57603574 Active 2023 Kaylan Allen LPN null, [place] [facility] 4 12:06:49 Sinusitis 38521755 Active 2023 Cherri Pak MA null, [place] [facility] 4 11:36:12 Cough 15367866 Active 2023 Cherri Pak MA null, [place] [facility] 4 10:32:41 Nicotine dependenc e 03189188 Active 2024 Juleitte Ortega MD [address], [facility] [address], [place], [address] , [place] [facility] 5 15:33:10 Chronic diarrhea 840072509 Active 2024 SHIRLEY Henderson [address], [place], [address] , [facility] [employer] 14:44:46 Problem Notes None recorded. Procedures Surgical History Date Name Laterality Status Provider Name and Address Organization Details Recorded Time 12/14/19 Medicare Wellness CPT Code, subsequent completed Mellisa Dolan RN [facility] 12/13/2022 16:16:39 12/25/19 Date of Last Mammogram completed Mellisa Dolan RN [facility] 12/13/2022 16:18:47 06/16/20 Most Recent Bone Density completed Not Available [facility] 11/23/2022 04:42:58 04/01/20 19 Date of Last Colonoscopy completed Not Available [facility] 11/23/2022 04:42:58 06/08/20 16 Total hip arthroplasty completed Not Available [facility] 11/23/2022 04:43:03 06/07/20 16 Orthopedic Surgery completed Not Available [facility] 11/23/2022 04:43:03 11/24/19 16 colonoscopy completed Not Available [facility] 11/24/19 04:43:03 Cataract Surgery completed Not Available [facility] 11/23/2022 04:43:03 section completed Not Available [facility] 11/23/2022 04:43:03 Imaging Results None recorded. Procedure Notes None recorded. Medical Equipment None Reported. Allergies No known drug allergies Medications Name Sig Start Date Stop Date Status Note LastModified by Organization Details LastModified Time losartan 50 mg tablet 10/31 completed Not Available Not Available Not Available cyclobenzap rine 10 mg tablet TAKE 1 TABLET BY MOUTH EVERYDAY AT BEDTIME *NOT COVERED* active Not Available Not Available No t Available amoxicillin 500 mg capsule Take 1 capsule 3 times a day by oral route for 10 days. 02/19 completed Not Available Not Available Not Available silver sulfadiazin e 1 % topical cream active Not Available Not Available Not Available atorvastati n 20 mg tablet TAKE 1 TABLET BY MOUTH DAILY active Not Available Not Available No t Available azithromyci n 250 mg tablet Take 1 dose pk by oral route as directed. 11/13 completed Not Available Not Available Not Available indapamide 2.5 mg tablet TAKE 1 TABLET BY MOUTH EVERY DAY active Not Available Not Available No t Available tramadol 37.5 mg-acetamin ophen 325 mg tablet active Not Available Not Available No t Available ofloxacin 0.3 % eye drops DROP 1 DROP INTO AFFECTED EYE 3 TIMES DAILY BEGINNING 2 DAYS PRIOR TO SURGERY active Not Available Not Available No t Available fluconazole 150 mg tablet Take 1 tablet every day by oral route. active Not Available Not Available No t Available benzonatate 200 mg capsule Take 1 capsule 3 times a day by oral route as needed for 10 days. 11/13 completed Not Available Not Available Not Available metoprolol succinate ER 100 mg tablet,exte nded release 24 hr TAKE 1 TABLET BY MOUTH EVERY DAY 2024 active MARY: - NOV: Not Available Not Available Not Available amlodipine 5 mg tablet 11/12 completed Not Available Not Available Not Available sulfamethox azole 800 mg-trimetho prim 160 mg tablet 05/30 completed Not Available Not Available Not Available aspirin 81 mg tablet,fabian yed release Take 1 tablet every day by oral route. 2020 active Not Available Not Available Not Avai lable tramadol 50 mg tablet active Not Available Not Available No t Available triamcinolo ne acetonide 0.1 % topical cream active Not Available Not Available Not Available simvastatin 40 mg tablet TAKE 1 TABLET BY MOUTH EVERY DAY 2024 active MARY: - NOV: Not Available Not Available Not Available Celebrex 200 mg capsule active Not Available Not Available Not Available meloxicam 7.5 mg tablet TAKE 1 TABLET BY MOUTH EVERY DAY 03/19 completed Not Available Not Available Not Available oxycodone-a cetaminophe n 5 mg-325 mg tablet active Not Available Not Available No t Available prednisolon e acetate 1 % eye drops,suspe nsion DROP 1 DROP INTO AFFECTED EYE 3 TIMES DAILY BEGINNING AFTER SURGERY active Not Available Not Available No t Available amlodipine 10 mg tablet TAKE 1 TABLET BY MOUTH EVERY DAY 2024 active MARY 07/22 NOV ok to rf Not Available Not Available Not Available hydrocodone 7.5 mg-acetamin ophen 325 mg tablet active Not Available Not Available No t Available sertraline 25 mg tablet 11/12 completed Not Available Not Available Not Available diclofenac sodium 75 mg tablet,fabian yed release Take 1 tablet twice a day by oral route for 30 days. active Not Available Not Available No t Available codeine 10 mg-guaifene sin 100 mg/5 mL oral liquid Take 10 mL 3 times a day by oral route as directed. active Not Available Not Available No t Available bisacodyl 5 mg tablet,fabian yed release TAKE ALL 6 TABLETS BY MOUTH AT 8 AM ON 09-25-2309/26 completed Not Available Not Available Not Available metoprolol succinate ER 25 mg tablet,exte nded release 24 hr TAKE 1 TABLET ONCE DAILY active Not Available Not Available No t Available ergocalcife rol (vitamin D2) 1,250 mcg (50,000 unit) capsule active Not Available Not Available Not Available methylpredn isolone 4 mg tablets in a dose pack Take 1 package by oral route as directed. 11/24 completed Not Available Not Available Not Available fluticasone propionate 50 mcg/actuati on nasal spray,suspe nsion SPRAY 1 SPRAY INTO BOTH NOSTRILS ONCE DAILY active Not Available Not Available No t Available sertraline 50 mg tablet 09/13 completed Not Available Not Available Not Available Pneumovax-2 3 25 mcg/0.5 mL injection syringe 07/17 completed Not Available Not Available Not Available Nyamyc 100,000 unit/gram topical powder active Not Available Not Available Not Available Boostrix Tdap 2.5 Lf unit-8 mcg-5 Lf/0.5 mL intramuscul ar suspension active Not Available Not Available N ot Available Boostrix Tdap 2.5 Lf unit-8 mcg-5 Lf/0.5 mL intramuscul ar syringe active Not Available Not Available N ot Available calcium QD 07/27 completed Not Available Not Available Not Available GaviLyte-G 236 gram-22.74 gram-6.74 gram-5.86 gram oral solution DRINK 1/2 AT 5 PM ON 09-25-23 AND OTHER 1/2 AT 5AM ON 09-26-2309/26 completed Not Available Not Available Not Available Vitamin D3 125 mcg (5,000 unit) tablet Take 1 tablet every day by oral route. 2019 active Not Available Not Available Not Avai lable Vitamin D3 50 mcg (2,000 unit) capsule Take 1 capsule every day by oral route. 01/08 completed Not Available Not Available Not Available Xarelto 10 mg tablet active Not Available Not Available No t Available Ilevro 0.3 % eye drops,suspe nsion DROP 1 DROP INTO THE SURGICAL EYE ONCE DAILY STARTING 2 DAYS BEFORE SURGERY active Not Available Not Available No t Available Fluzone High-Dose 6958-7812 (PF) 180 mcg/0.5 mL intramuscul ar syringe active Not Available Not Available N ot Available Fluzone High-Dose (PF) 180 mcg/0.5 mL intramuscul ar syringe active Not Available Not Available N ot Available Fluzone High-Dose (PF) 180 mcg/0.5 mL intramuscul ar syringe active Not Available Not Available N ot Available Caltrate-D3 Plus Minerals qd 02/15 completed Not Available Not Available Not Available Fluzone High-Dose 1402-7603 (PF) 180 mcg/0.5 mL intramuscul ar syringe 07/17 completed Not Available Not Available Not Available Fluzone High-Dose 7272-8846 (PF) 180 mcg/0.5 mL intramuscul ar syringe Inject intramusc ularly by the pharmacis t 09/09 completed Not Available Not Available Not Available Fluad 2018- 65yr up(PF)45 mcg(15 mcgx3)/0.5 mL intramuscul ar syringe active Not Available Not Available N ot Available Fluzone High-Dose Quad (PF) 240 mcg/0.7 mL IM syringe PHARMACY ADMINISTE RED 10/16 completed Not Available Not Available Not Available QuickVue At-Home COVID-19 Test kit USE DIRECTED 09/26 completed Not Available Not Available Not Available Vitals Date Recorded Body mass index (BMI) Body weight Body temperature Heart rate Oxygen saturation Oxygen saturation in Arterial blood by Pulse oximetry Systolic And Diastolic Provider Name and Address Organization Details Last Updated DateTime 4 25.8 kg/m2 41991.1 9 g 97.9 [degF] 82 /min 95 % 95 % 132/64 mm[Hg] Mellisa servin CMA [place] [facility] [employer] [facility] 4 14:08:58 Date Recorded Body height Provider Name an d Address Organization Details Last Updated DateTime 10/31/2023 152.4 cm Maria T white Rosanna [facility] [employer] [place] [facility] 10/31/2023 14:03:11 Date Recorded Body height Body mass index (BMI) Body weight Oxygen saturation Oxygen saturation in Arterial blood by Pulse oximetry Heart rate Body temperature Systolic And Diastolic Provider Name and Address Organization Details Last Updated DateTime 5 152.4 cm 25 kg/m2 34153.8 2 g 96 % 96 % 91 /min 97.1 [degF] 118/68 mm[Hg] Raven saldivar [facility] [employer] [facility] 5 15:23:52 Date Recorded Body height Body mass index (BMI) Body weight Body temperature Heart rate Oxygen saturation Oxygen saturation in Arterial blood by Pulse oximetry Systolic And Diastolic Provider Name and Address Organization Details Last Updated DateTime 5 152.4 cm 25 kg/m2 47960.8 2 g 98.1 [degF] 120 /min 97 % 97 % 144/80 mm[Hg] Maria T chatman [facility] [employer] [facility] 5 14:04:31 Date Recorded Body height Body mass index (BMI) Body weight Heart rate Oxygen saturation Oxygen saturation in Arterial blood by Pulse oximetry Systolic And Diastolic Provider Name and Address Organization Details Last Updated DateTime 4 152.4 cm 26 kg/m2 98849.8 6 g 90 /min 93 % 93 % 126/70 mm[Hg] Radha Anderson Rosanna [facility] [employer] [facility] 4 14:09:16 Date Recorded Body height Body mass index (BMI) Body weight Heart rate Oxygen saturation Oxygen saturation in Arterial blood by Pulse oximetry Systolic And Diastolic Provider Name and Address Organization Details Last Updated DateTime 4 152.4 cm 25.2 kg/m2 84148.4 2 g 102 /min 94 % 94 % 124/70 mm[Hg] Maria T chatman Rosanna [facility] [employer] [place] [facility] 4 14:23:11 Social History Question Answer Notes LastModified by Organizat ion Details LastModified Time Tobacco Smoking Status Current Every Day Smoker Not Available [facility] 11/23/2022 04:11:30 Do You Have An Advance Directive? Yes [id number] Information not available 11/23/2022 Are You Blind Or Do You Have Difficulty Seeing? No MIGRATION.21492 75573 Information not available 11/23/2022 What Is Your Level Of Caffeine Consumption? Moderate MIGRATION.59544 60927 Information not available 11/23/2022 How Much Tobacco Do You Chew? None MIGRATION.49027 40052 Information not available 11/23/2022 In The 14 Days Before Symptom Onset, Have You Had Close Contact With A Laboratory-confi rmed COVID-19 While That Case Was Ill? No MIGRATION.93793 37938 Information not available 11/23/2022 In The 14 Days Before Symptom Onset, Have You Had Close Contact With A Person Who Is Under Investigation For COVID-19 While That Person Was Ill? No MIGRATION.78450 12232 Information not available 11/23/2022 Are You Deaf Or Do You Have Serious Difficulty Hearing? Yes MIGRATION.46696 62331 Information not available 11/23/2022 What Type Of Diet Are You Following? REGULAR MIGRATION.85216 04804 Information not available 11/23/2022 Which Illicit Or Recreational Drugs Have You Used? None MIGRATION.57749 40141 Information not available 11/23/2022 How Many Days Of Moderate To Strenuous Exercise, Like A Brisk Walk, Did You Do In The Last 7 Days? 3 [email or web address] Information not available 03/19/2024 On Those Days That You Engage In Moderate To Strenuous Exercise, How Many Minutes, On Average, Do You Exercise? 30 [email or web address] Information not available 03/19/2024 What Is The Fluoride Status Of Your Home? Fluoridated MIGRATION.67134 73424 Information not available 11/23/2022 Are There Any Guns Present In Your Home? No MIGRATION.46085 98912 Information not available 11/23/2022 Where Do You Live? [facility] MIGRATION.07956 56865 Information not available 11/23/2022 Presence Of Domestic Violence No [email or web address] Information not available 12/13/2022 Are You Able To Care For Yourself? Yes [email or web address] Information not available 12/13/2022 Are You Blind Or Do Yo Have Difficulty Seeing? No [email or web address] Information not available 12/13/2022 Are You Deaf Or Do You Have Serious Difficulty Hearing? No [email or web address] Information not available 12/13/2022 General Stress Level? Moderate Information not available 12/13/2022 Live Alone Of With Others? With Others [email or web address] Information not available 12/13/2022 Do You Have A Medical Power Of Fixture Builder? No [email or web address] Information not available 03/19/2024 What Was The Date Of Your Most Recent Tobacco Screening? 12/13/2022 [email or web address] Information not available 12/13/2022 Do You Have Any Pets? Yes MIGRATION.78755 85026 Information not available 11/23/2022 What Is Your Relationship Status? MIGRATION.06561 51177 Information not available 11/23/2022 Do You Use Your Seat Belt Or Car Seat Routinely? Yes MIGRATION.89196 11580 Information not available 11/23/2022 Do You Have Smoke And Carbon Monoxide Detectors In Your Home? Yes MIGRATION.30000 38903 Information not available 11/23/2022 At What Age Did You Start Smoking Tobacco? 22 MIGRATION.32890 78928 Information not available 11/23/2022 Are There Any Smokers In Your House? Yes [email or web address] Information not available 03/19/2024 How Much Tobacco Do You Smoke? 0.5 PPD MIGRATION.58527 78512 Information not available 11/23/2022 What Types Of Sporting Activities Do You Participate In? None [email or web address] Information not available 03/19/2024 Do You Use Sunscreen Routinely? Yes MIGRATION.24544 17581 Information not available 11/23/2022 Has Tobacco Cessation Counseling Been Provided? Yes MIGRATION.62957 15495 Information not available 11/23/2022 On What Date Was Tobacco Cessation Counseling Provided? 11/01/2021 MIGRATION.10143 78901 Information not available 11/23/2022 Do You Have Difficulty Walking Or Climbing Stairs? No MIGRATION.80087 09135 Information not available 11/23/2022 Sex: Female Functional Status Question Answer Note LastModified by Organizat ion Details LastModified Time What is your level of alcohol consumption? None MIGRATION.585383 4108 Information not available 11/23/2022 Do you have transportation difficulties? No MIGRATION.394015 9405 Information not available 11/23/2022 Are you able to walk? YESWOREST MIGRATION.384608 5428 Information not available 11/23/2022 Do you have difficulty doing errands alone? No MIGRATION.926207 1752 Information not available 11/23/2022 Are you able to care for yourself? 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 No MIGRATION.264757 8434 Information not available 11/23/2022 What is your exercise level? Occasional MIGRATION.550992 5606 Information not available 11/23/2022 Mental Status Question Answer Note LastModified by Organizat ion Details LastModified Time Do you feel stressed (tense, restless, nervous, or anxious, or unable to sleep at night)? [id number] MIGRATION.[id number] 26 Information not available 11/23/2022 Do you have difficulty concentrating, remembering or making decisions? No MIGRATION.[id number] 26 Information not available 11/23/2022 Family History Relationship Description Onset Age of this Age Resolved Age Notes LastModified by Organization Details LastModified Time Father Hypertensive disorder MIGRATION.[id number] Not available 11/23/2022 04:43:04 Medical History Condition Response HIGH CHOLESTEROL / HYPERLIPIDEMIA Y HYPERTENSION Y Gynecological History Statement/Question Response Date of Last Pap 10/24/2017 Date of Last Mammogram 12/24/2021 Date of Last Colonoscopy 04/01/2019 Date of Last Mammogram 12/24/2021 Most Recent Bone Density 06/16/2020 Obstetrics History GPAL:G 0 P 0 0 0 0 Immunizations Vaccine Type Date Status Note Provider Nam e and Address Organization Details Recorded Time Influenza, high-dose, quadrivalent, PF 1 completed BRIGID Putnam, [facility] [employer] 10/31/2023 14:17:02 SARS-COV-2 (COVID-19) vaccine, UNSPECIFIED 1 completed BRIGID Putnam, [place] [facility] 10/31/2023 14:17:02 SARS-COV-2 (COVID-19) vaccine, UNSPECIFIED 1 BRIGID Dash, [facility] 10/31/2023 14:17:02 Influenza, split virus, quadrivalent, preservative 0 completed BRIGID Putnam, [facility] 10/31/2023 14:17:02 Influenza, split virus, quadrivalent, preservative 9 completed Not Available [facility] 11/23/2022 05:02:21 influenza, unspecified formulation 8 completed Not Available [facility] 11/23/2022 05:02:21 Influenza, high-dose, trivalent, PF 7 completed BRIGID Putnam, [facility] 10/31/2023 14:17:02 pneumococcal polysaccharide PPV23 7 completed BRIGID Putnam, [facility] 10/31/2023 14:17:02 Influenza, high-dose, trivalent, PF 5 completed BRIGID Putnam, [facility] 10/31/2023 14:17:02 Tdap 5 completed Not Available [facility] 11/23/2022 05:02:22 Past Encounters Encounter ID Performer Location Encounter Start Date Encounter Closed Date Diagnosis/Indication Diagnosis SNOMED-CT Code Diagnosis ICD10 Code Diagnosis Note [id number] MD DANNA [facility] [address] [facility] [place] [address] 02/15/2021 00:00:00 02/15/2021 16:56:47 [id number] MD SUMAYA [facility] [address] [place] [address] 06/28/2021 00:00:00 06/28/2021 16:32:09 [id number] MD DANNA [facility] [address] [place] [address] 11/01/2021 00:00:00 11/01/2021 16:57:10 [id number] MD DANNA [facility] [address] [facility] [place] [address] 03/24/2022 00:00:00 03/24/2022 14:40:05 [id number] Juliette Ortega MD [facility] Internal [facility] [address] [facility] [facility] [place] [address] 07/27/2022 00:00:00 07/27/2022 12:37:06 [id number] Juliette Ortega MD [facility] Internal Med [facility] [address] [facility] 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 [address] 04/04/2023 15:02:20 04/04/2023 15:28:31 Neck pain 03021166 M54.2 aleve 2 bid Cramp in lower limb 8789 61358 R25.2 muscular, flexril should help [id number] Juliette Ortega MD [facility] Internal Med [facility] [address] [facility] [place] [address] 04/17/2023 15:18:22 04/17/2023 16:16:16 Essential hypertension 21126266 I10 under control Prediabetes 566094272 R7 3.03 watching diet Hyperlipidemia 92821838 E78.5 under control Smoker 52473928 F17.200 advised to quit Osteoarthritis 431081432 M19.90 otc Osteopenia 979528798 M85 .80 vit d/ca Solitary n odule of lung 435250931 R91.1 stable, LDCT 08/16 Adult heal th examination 805771616 Z00.00 Colonoscop y- 03/2019 (in Chart)Mamm ogram- 11/2021 (in chart)LDCT - 08/16DEXA- 01/15Pneumo vax- 05/2017FLU - 05/2021, 07/16COVID - 11/05/20, 12/14/20 and booster, 07/16 Neck pain 56419602 M54.2 going to see chiropract or and wants x rays to be done there [id number] Juliette Ortega MD [facility] Internal Med [address] [place] [address] 07/21/2023 15:25:07 07/21/2023 16:47:35 Urinary symptoms 435593280 R39.9 urine dipstick within normal limits; discussed blood may be from rectum Abdominal bloating 51011 9008 R14.0 discussed history of most recent colonoscop y with stating rectal bleeding and divirticul i and colon polypsshe is having some difficulty passing stool, we discussed trying mirilax to facilitate normal bowel movement and if not feeling better in a few days can call back, we can discuss referral to gi. She has a history of polyps and divirticul i and thinks she is due for colonoscop y at [age] years and she is almost due anyway. She will try mirilax this weekend and call back next week if not better will send to gi. [id number] Michael Menadr MD S_[facility] [address] [address] 08/10/2023 08:57:59 08/21/2023 10:51:54 Pain of left knee joint 8067467436 40256 M25.562 Pain of le ft hip joint 1521577942 80794 M25.773 [id number] Michael Menard MD [facility] [address] [place] [address] 09/21/2023 13:53:48 09/21/2023 14:11:40 Pain of left knee joint 5212741059 46246 M25.562 Pain of le ft hip joint 4036161250 49443 M25.913 [id number] Juliette Ortega MD [facility] Internal [facility] [address] [facility] [place] [address] 10/31/2023 14:00:59 10/31/2023 14:55:05 Essential hypertension 43224199 I10 under control Prediabetes 602116347 R7 3.03 watching diet Hyperlipidemia 63276594 E78.5 under control , labs discussed Smoker 33690680 F17.200 smokes 1ppd x 50 yrs, advised to quit Osteoarthritis 117158281 M19.90 otc Osteopenia 512526155 M85 .80 vit d/ca Solitary n odule of lung 504332101 R91.1 stable, LDCT 08/16 Adult heal th examination 638073852 Z00.00 Colonoscop y- 03/2019 (in Chart)Mamm ogram- 11/2021 (in chart) Scheduled for February 2024LDCT- 08/16DEXA- 01/15Pneumo vax- 05/2017FLU - 05/2021, 07/16COVID - 11/05/20, 12/14/20 and booster, 07/16 [id number] Juliette Ortgea MD [facility] Internal [facility] [address] [facility] [place] [address] 03/19/2024 14:02:36 03/19/2024 14:50:47 Essential hypertension 46235113 I10 under control Prediabetes 848573119 R7 3.03 watching diet, under control Hyperlipidemia 85741750 E78.5 under control , labs discussed Smoker 01426624 F17.200 smokes 1ppd x 50 yrs, advised to quit Osteoarthritis 056194302 M19.90 otc Osteopenia 600749636 M85 .80 vit d/ca, dexa 01/15 Solitary n odule of lung 931110705 R91.1 stable, LDCT 11/18 Adult [facility] th examination 404408234 Z00.00 Colonoscop y- 03/2019 (in Chart) , 10/18, no reportMamm ogram- 02/07/24LD CT- 08/16DEXA- 01/15Pneumo vax- 05/2017Pre vnar 2022- [facility] - DUEFLU- 2022RSV- OVID- 11/05/20, 12/14/20 and booster, 07/16 [id number] Juliette Ortega MD [facility] Internal Med [facility] [address] [facility] [place] [address] 07/22/2024 14:00:52 07/22/2024 14:43:49 Essential hypertension 03991688 I10 under control Prediabetes 972081443 R7 3.03 watching diet, under control Hyperlipidemia 81926034 E78.5 under control , labs discussed Smoker 27120986 F17.200 smokes 1ppd x 50 yrs, advised to quit, has cut down Osteoarthritis 671015286 M19.90 otc Osteopenia 079909802 M85 .80 vit d/ca, dexa 01/15 Solitary n odule of lung 215481160 R91.1 stable, LDCT 11/18 Adult [facility] examination 150475778 Z00.00 Colonoscop y- 03/2019 (in Chart) , 10/18, no reportMamm ogram- 02/07/24LD CT- 11/07/23DE XA- 01/15Pneumo vax- 05/2017Pre vnar 2022- [facility] 13- DUEFLU- 07/06/24 ([facility])R SV- OVID- 11/05/20, 12/14/20 and booster, 07/16, 07/06/24 ([facility]) [id number] Juliette Ortega MD [facility] Internal Med [facility] [address] [facility] [place] [address] 01/21/2025 15:12:28 01/21/2025 15:44:59 Essential hypertension 92591489 I10 under control Prediabetes 261645034 R7 3.03 watching diet, under control Hyperlipidemia 16434960 E78.5 under control , Smoker 43845401 F17.200 smokes 1ppd x 50 yrs, advised to quit, has cut down Osteoarthritis 902891062 M19.90 otc Osteopenia 497468178 M85 .80 vit d/ca, dexa 01/15 Solitary n odule of lung 047277605 R91.1 stable, LDCT 11/18 Adult heal th examination 591759946 Z00.00 Colonoscop y- 03/2019 (in Chart) , 10/18, no reportMamm ogram- 02/07/24LD CT- 11/07/23DE XA- 01/15Pneumo vax- 05/2017Pre vnar 2022- [facility] 13- DUEFLU- 07/06/24 ([facility])R SV- OVID- 11/05/20, 12/14/20 and booster, 07/16, 07/06/24 ([facility]) [id number] Juliette Ortega MD [facility] [address] [facility] [place] [address] 02/10/2025 13:57:28 02/10/2025 15:06:08 Acute sinusitis 31932223 J01.90 Health Concerns Section Related Observation LastModified by Organization Detai ls LastModified Time None Recorded Concern Status LastModified by Organization Details LastModified Time None Recorded Advance Directives Directive Y: Payers Insurance Date Sequence Insurance Name Policy Number Policy Spencer Covered Member ID Spencer Member ID Guarantor Name 03/25/2025 1 [facility] (MEDICARE REPLACEMENT/ ADVANTAGE - PPO) [id number] Vielka Buchanan [id number] Vielka Buchanan Notes Date Note Type Note Provider Name and Address Organization Details Recorded Time 10/31/2023 text/html She is here toda y for her routine follow up, taking meds daily, no side effects. Hypertension- On meds and under controlMeds- Amlodipine 10 mg daily, Indapamide 2.5 mg daily, Metoprolol ER 100 mg dailyHyperlipidemia- Takes meds , labs good 10/18Meds- Simvastatin 40 mg dailyVitamin D def- Takes OTC 5000 u a days/p hip replacements both sidesNeg stress test in the pastSmoker- advised to quit, has cut downLung nodule- unchanged LDCT 08/16 , needs f/uPre- diabetes- watching diet, A1c 5.6 in 12/2022 Had vertigo, seen ENT, improved. Juliette Ortega MD [address], [place], [address], [facility] [employer] 10/31/2023 14:36:46 03/19/2024 text/html [facility], taking meds daily, no side effects. Hypertension- On meds and under control.Meds- Amlodipine 10 mg daily, Indapamide 2.5 mg daily, Metoprolol ER 100 mg dailyHyperlipidemia- Takes meds , labs good 11/18Meds- Simvastatin 40 mg dailyVitamin D def- Takes OTC 5000 a days/p hip replacements both sidesNeg stress test in the pastSmoker- advised to quit, has cut downLung nodule- unchanged LDCT 11/07/23Pre- diabetes- watching diet, A1c 5.6 in 12/2022 Had vertigo, seen ENT, improved. Juliette Ortega MD [address], [place], [address], [facility] [employer] 04/15/2024 17:14:12 07/22/2024 text/html [facility] taking meds daily, no side effects. HEARING LOSS, getting hearing aids Hypertension- On meds and under control.Meds- Amlodipine 10 mg daily, Indapamide 2.5 mg daily, Metoprolol ER 100 mg dailyHyperlipidemia- Takes meds , labs good 11/18, watching dietMeds- Simvastatin 40 mg dailyVitamin D def- Takes OTCs/p hip replacements both sidesNeg stress test in the pastSmoker- advised to quit, has cut down, Last LDCT- 11/07/2023Lung nodule- unchanged LDCT 11/07/23Pre- diabetes- watching diet, A1c 5.6 in 12/2022 Had vertigo, seen ENT, improved. Juliette Ortega MD [address], [address], [place], [address], [employer] 07/22/2024 14:41:07 01/21/2025 text/html She is here toda y for her routine follow up, taking meds daily, no side effects. Numbness in both feet up to calves sometime onset six wks Pt is not fasting [facility] HEARING LOSS, using hearing aids Hypertension- On meds and under control.Meds- Amlodipine 10 mg daily, Indapamide 2.5 mg daily, Metoprolol ER 100 mg dailyHyperlipidemia- Takes meds , labs good 11/18, watching diet, labs 11/19Meds- Simvastatin 40 mg dailyVitamin D def- Takes OTCs/p hip replacements both sidesNeg stress test in the pastSmoker- advised to quit, has cut down, Last LDCT- 11/07/2023Lung nodule- unchanged LDCT 11/07/23 , order LDCTPre- diabetes- watching diet, A1c 5.6 in 12/2022 Had vertigo in the past, seen ENT, improved. 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
== END 2025-04-10 09:44 | disposition home or self-care (01) ==
LOC: ANHIMG 09:44
PROVIDERS: PCP Internal Medicine; Visit Provider Internal Medicine
DX: Z12.31 Encounter for screening mammogram for malignant neoplasm of breast (principal)
CPT/HCPCS: 77063; 77067

== ENCOUNTER 2025-06-19 14:42 | Outpatient (CLI) | payer MEDICARE, SELFPAY ==
--- NOTE | ~2025-06-19 | DEXA_ITS ---
Bone Density Report Name: CHINTAN BUCHANAN Age: 79 Sex: Female Ethnicity: White Date of : 1945 Indication: postmenopausal; screening for osteoporosis; height loss; Referring Provider: BIPIN, JULIETTE Caba Study: Bone densitometry was performed. Exam Date: June 19, 2025 Accession number: [id number] Bone Density: Region BMD T-score Z-score Classification AP Spine(L1-L4) 1.060 0.1 2.7 Normal World Health Organization criteria for BMD impression classify patients as: Normal (T-score at or above -1.0), Osteopenia (T-score between -1.0 and -2.5), or Osteoporosis (T-score at or below -2.5). Previous Exams: Region Exam Age BMD T-score BMD Change BMD Change Date g/cm2 vs Baseline vs Previous AP Spine (L1-L4) 06/19/2025 79 1.060 0.1 0.102 (10.6%)# 0.102 (10.6%)# 02/15/2012 66 0.958 -0.8 *Denotes significance at 95% confidence level, LSC for AP Spine = 0.022 g/cm2 # Denotes dissimilar scan types or analysis methods Clinical Information Provided by Patient: Smokes Has used the following medications: Vitamin D, Calcium Patient maximum height was 63 Drinks caffeinated beverages Onset of menses at age 13 Number of children 1 Impression: The patient has normal bone mass. The patient has risk factors, including: smoking. No significant bone loss was observed. Discussion: LOW RISK OF FRACTURE; BONE DENSITY IS WELL ABOVE THE MINIMUM DESIRABLE LEVEL AND ABOVE AVERAGE FOR AGE AND SEX AT ALL SKELETAL SITES TESTED. This person's bone density is above expected limits for age and sex. This is rarely clinically significant, but should be pursued if there are significant musculoskeletal complaints. The patient should follow a healthful lifestyle (good nutrition with adequate calcium and vitamin D, and appropriate weight-bearing exercise). Follow-Up: Consider repeating this study in 5 years or sooner if there is some new clinical indication. Reported by: ARABELLA on 06/19/2025 3:20:00 PM. Reviewed, dictated and finalized at location A.
--- OUTSIDE RECORDS SUMMARY | 2025-06-19 17:15 | XMS_ITS | Clinical Summary ---
Author Organization [facility] Address [address] [place] [address] Care Team Providers Care Materials Handler Name Role Phone Sergio Leonard MD Primary Care Provider [phone] Source Comments [facility],non-owned Affiliates and Associated Physician Practices is amultiple site organization consisting of ambulatory clinics and hospital sitesin [place], [place], [place] and [place]. This disclosure is being madepursuant to the Care Everywhere program and may not contain all information available regarding this patient. Last updated 18.[facility] Allergies No known active allergies Medications * [...] yrs (1 - 1-dose 75+ series) 2021 DEPRESSION SCREENING 09/25/2024 COVID-19 VACCINE ( - 2023-2 5 season) 2025 INFLUENZA VACCINE (#1) 2025 HEPATITIS B VACCINE [...] to complete this topic Insurance Care Teams Materials Handler Relationship Specialty Start Date End Date Sergio Leonard MD [address] [place] [address] PCP - General Family Medicine 06/03/16
== END 2025-06-19 14:43 | disposition home or self-care (01) ==
LOC: ANHFOHIMG 14:43
PROVIDERS: PCP Internal Medicine; Visit Provider Internal Medicine
DX: Z78.0 Asymptomatic menopausal state (principal)
CPT/HCPCS: 77080